=== PATIENT | female | born 1965 | race Caucasian/White ===

== ENCOUNTER 2016-10-14 19:58 | Emergency (ER) | payer MEDICAID ==
[~2016-10-14] VITALS: Ht 160 cm; Wt 72.6 kg
[2016-10-14] MEDS ORDERED: SULFAMETH/TRIMETH 800/160 MG TABLET PO ONE (20:15)
[2016-10-14] MEDS ORDERED: PHENAZOPYRIDINE HCL 100 MG TABLET PO ONE (20:15)
[2016-10-14 20:16] LABS: *BILIRUBIN,URIN NEGATIVE (NEGATIVE); *BLOOD, URINE 3+ (NEGATIVE); *CLARITY,URINE SLIGHTLY CLOUDY (CLEAR); *COLOR,URINE YELLOW (YELLOW); *KETONES,URINE NEGATIVE (NEGATIVE); *PROTEIN,URINE 1+ (NEGATIVE); *UROBILINOGEN,URINE 0.2 E.U./dl (NORMAL); LEUKOCYTE ESTERASE ,URINE 2+ (NEGATIVE); NITRITE, URINE POSITIVE (NEGATIVE); PH,URINE 5.5 (5.0-8.0); UGLUCOSE NEGATIVE (NEGATIVE)
[2016-10-14 20:24] LABS: BACTERIA,URINE FEW /HPF (NONE SEEN); SQUAMOUS EPITHELIAL CELL,UR FEW /HPF (NONE SEEN); WBC,URINE 20-50 /HPF (0-3)
[2016-10-14] MEDS ORDERED: SULFAMETH/TRIMETH 800/160 MG TABLET ONE (20:28)
[2016-10-14] MEDS ORDERED: PHENAZOPYRIDINE HCL 100 MG TABLET ONE (20:28)
--- NOTE | 2016-10-14 20:40 | NUR ---
Patient discharged to home in stable conditon. Written and verbal after care instructions given. Patient verbalizes understanding of instructions.
== END 2016-10-14 20:40 | disposition home or self-care (01) ==
LOC: ER 19:59
DX: N39.0 Urinary tract infection, site not specified (principal)
CPT/HCPCS: A4663

== ENCOUNTER 2017-04-24 08:14 | Emergency (ER) | payer MEDICAID ==
[~2017-04-24] VITALS: Ht 157.5 cm; Wt 73.0 kg
[2017-04-24] MEDS ORDERED: IBUP-23 PO (08:26)
--- NOTE | 2017-04-24 08:34 | NUR ---
PT CAME IN FROM HOME W/ C/O GI DISCOMFORT AND BACK PAIN X 2 WKS. ALSO COUGH X 3 DAYS. PT IS A&OX4. PT EVALUATED BY MD QUISPE. PT OFFERED MEDS, BUT REFUSED AT THIS TIME. WILL CONTINUE TO MONITOR. AWAITING MD ORDERS.
--- NOTE | 2017-04-24 08:39 | NUR ---
PASSENGER BOOKING CLERK AT BEDSIDE
[2017-04-24 09:03] LABS: BASOPHILS % (AUTO) 0.5 % (0.0-2.0); EOSINOPHILS # (AUTO) 0.1 K/uL (0.0-0.7); EOSINOPHILS % (AUTO) 1.5 % (0.0-7.0); HEMATOCRIT 40.5 % (31.2-41.9); LYMPHOCYTES # (AUTO) 1.9 K/uL (20.0-40.0); LYMPHOCYTES % (AUTO) 51.1 % (20.5-51.5); MEAN CORPUSCULAR HEMOGLOBIN 32.2 uug (24.7-32.8); MEAN CORPUSCULAR HGB CONC 35 g/dL (32.3-35.6); MONOCYTES # (AUTO) 0.6 K/uL (2.0-10.0); NEUTROPHILS # (AUTO) 1.1 K/uL (1.8-8.9); NEUTROPHILS % (AUTO) 29.9 % (38.5-71.5); PLATELET COUNT (AUTO) 281 K/uL (179-408); RED BLOOD CELL COUNT(AUTO) 4.35 MIL/uL (3.63-4.92); WHITE BLOOD COUNT (AUTO) 3.8 K/uL (3.8-11.8)
[2017-04-24 09:12] LABS: ALANINE AMINOTRANSFERASE 24 U/L (14-59); ALKALINE PHOSPHATASE 59 U/L (50-136); ASPARTATE AMINOTRANSFERASE 20 U/L (15-37); BILIRUBIN,DIRECT < 0.1 mg/dL (0.0-0.2); BILIRUBIN,TOTAL 0.2 mg/dL (0.2-1.0); CARBON DIOXIDE 32 mmol/L (21-32); CHLORIDE 102 mmol/L (98-107); CREATININE 0.8 mg/dL (0.6-1.3); GLUCOSE 100 mg/dL (74-106); LIPASE 148 U/L (73-393); POTASSIUM 3.5 mmol/L (3.5-5.1); TOTAL PROTEIN, SERUM 7.2 g/dL (6.4-8.2); UREA NITROGEN, BLOOD 11 mg/dL (7-18)
[2017-04-24] MEDS ORDERED: ONDANSETRON ODT 4 MG TAB.RAPDIS SL ONE (09:15)
[2017-04-24 09:25] LABS: BASOPHILS % (MANUAL) 2 % (0-2); EOSINOPHILS % (MANUAL) 1 % (0-8); LYMPHOCYTES % (MANUAL) 59 % (20-40); MONOCYTES % (MANUAL) 13 % (2-10); NEUTROPHILS % (MANUAL) 25 % (42-75)
[2017-04-24] MEDS ORDERED: ONDANSETRON ODT 4 MG TAB.RAPDIS ONE (09:32)
[2017-04-24 09:38] LABS: *BILIRUBIN,URIN NEGATIVE (NEGATIVE); *BLOOD, URINE 3+ (NEGATIVE); *COLOR,URINE YELLOW (YELLOW); *KETONES,URINE NEGATIVE (NEGATIVE); *UROBILINOGEN,URINE 0.2 E.U./dl (NORMAL); LEUKOCYTE ESTERASE ,URINE NEGATIVE (NEGATIVE); NITRITE, URINE NEGATIVE (NEGATIVE); PH,URINE 6.5 (5.0-8.0); UGLUCOSE NEGATIVE (NEGATIVE)
[2017-04-24 09:47] LABS: *CLARITY,URINE HAZY (CLEAR); *PROTEIN,URINE 2+ (NEGATIVE)
[2017-04-24 09:48] LABS: BACTERIA,URINE FEW /HPF (NONE SEEN); MUCUS,URINE FEW /LPF (0-FEW); RBC,URINE 50-80 /HPF (0-3); SQUAMOUS EPITHELIAL CELL,UR FEW /HPF (NONE SEEN)
--- NOTE | 2017-04-24 09:56 | NUR ---
Patient discharged to home in stable conditon. Written and verbal after care instructions given. Patient verbalizes understanding of instructions.
== END 2017-04-24 09:58 | disposition home or self-care (01) ==
LOC: ER 08:14
DX: N39.0 Urinary tract infection, site not specified (principal)
CPT/HCPCS: 36415; 71045; 83690; 85025; A4663; Q0162

== ENCOUNTER 2017-07-27 10:48 | Emergency (ER) | payer MEDICAID ==
[~2017-07-27] VITALS: Ht 157.5 cm; Wt 73.0 kg
[~2017-07-27 10:48] MED LIST: IBUP-23 PO
[2017-07-27 11:19] LABS: *BILIRUBIN,URIN NEGATIVE (NEGATIVE); *BLOOD, URINE 3+ (NEGATIVE); *CLARITY,URINE SLIGHTLY CLOUDY (CLEAR); *COLOR,URINE LIGHT YELLOW (YELLOW); *KETONES,URINE NEGATIVE (NEGATIVE); *PROTEIN,URINE 2+ (NEGATIVE); *UROBILINOGEN,URINE 0.2 E.U./dl (NORMAL); LEUKOCYTE ESTERASE ,URINE 3+ (NEGATIVE); NITRITE, URINE NEGATIVE (NEGATIVE); PH,URINE 6.5 (5.0-8.0); UGLUCOSE NEGATIVE (NEGATIVE)
[2017-07-27 11:24] LABS: *URINE HCG, QUAL NEGATIVE (NEGATIVE)
[2017-07-27 11:29] LABS: BACTERIA,URINE MODERATE /HPF (NONE SEEN); RBC,URINE TNTC /HPF (0-3); SQUAMOUS EPITHELIAL CELL,UR MANY /HPF (NONE SEEN); WBC,URINE TNTC /HPF (0-3)
[2017-07-27] MEDS ORDERED: CEFTRIAXONE 1 G in IV DEXTROSE 5% 50 ML IV ONE (12:34)
[2017-07-27] MEDS ORDERED: IV NS 1000 ML 1,000 ML IV ONE (12:45)
[2017-07-27] MEDS ORDERED: ACETAMINOPHEN 325 MG TABLET PO ONE (12:45)
[2017-07-27] MEDS ORDERED: CEFTRIAXONE 1 G VIAL ONE (12:48)
[2017-07-27] MEDS ORDERED: ACETAMINOPHEN ES 500 MG TABLET ONE (12:48)
[2017-07-27 12:57] LABS: BASOPHILS # (AUTO) 0.1 K/uL (0.0-8.0); BASOPHILS % (AUTO) 0.8 % (0.0-2.0); EOSINOPHILS # (AUTO) 0.2 K/uL (0.0-0.7); EOSINOPHILS % (AUTO) 1.1 % (0.0-7.0); HEMATOCRIT 37.7 % (31.2-41.9); HEMOGLOBIN 12.7 g/dL (10.9-14.3); LYMPHOCYTES # (AUTO) 2.6 K/uL (20.0-40.0); MEAN CORPUSCULAR HEMOGLOBIN 31.2 uug (24.7-32.8); MEAN CORPUSCULAR HGB CONC 34 g/dL (32.3-35.6); MEAN CORPUSCULAR VOLUME 92.7 fL (75.5-95.3); MONOCYTES # (AUTO) 0.8 K/uL (2.0-10.0); MONOCYTES % (AUTO) 5.8 % (0.0-11.0); NEUTROPHILS # (AUTO) 10.5 K/uL (1.8-8.9); NEUTROPHILS % (AUTO) 74.3 % (38.5-71.5); PLATELET COUNT (AUTO) 281 K/uL (179-408); RED BLOOD CELL COUNT(AUTO) 4.07 MIL/uL (3.63-4.92); WHITE BLOOD COUNT (AUTO) 14.1 K/uL (3.8-11.8)
[2017-07-27 12:59] LABS: CREATININE 0.6 mg/dL (0.6-1.3); POTASSIUM 4.2 mmol/L (3.5-5.1)
[2017-07-27 13:11] LABS: BILIRUBIN,TOTAL 0.4 mg/dL (0.2-1.0); TOTAL PROTEIN, SERUM 7.2 g/dL (6.4-8.2)
[2017-07-27 13:48] VITALS: BP 133/75
--- NOTE | 2017-07-27 13:50 | NUR ---
DR LUA SPOKE WITH PATIENT MADE AWARE OF TEST RESULT WILL BE DC HOME.
--- NOTE | 2017-07-27 13:52 | NUR ---
Patient discharged to home in stable conditon. Written and verbal after care instructions given. Patient verbalizes understanding of instructions.
--- NOTE | 2017-07-31 11:44 | NUR ---
Pt Urine Cx result came back positive, results were discusses with . Pt was contacted, pt still has pain and burning during urination. decided to change the antibiotic, discussed with the pt. antibiotics changed to Levaquin 750 Mg P.O Qd. [facility] was contacted [phone] prescription was ordered. pt is informed. pt was informed if she gets worse to return to emergency Dept.
== END 2017-07-27 13:53 | disposition home or self-care (01) ==
LOC: ER 10:48
DX: N12 Tubulo-interstitial nephritis, not specified as acute or chronic (principal); Z79.1 Long term (current) use of non-steroidal anti-inflammatories (NSAID)
CPT/HCPCS: 36415; 84703; 85025; 87077; 87086; A4663; A9150; J0696; J7030

== ENCOUNTER 2017-12-21 07:11 | Emergency (ER) | payer MEDICAID ==
[~2017-12-21] VITALS: Ht 157.5 cm; Wt 72.6 kg
--- NOTE | 2017-12-21 07:25 | NUR ---
Dr Rodriguez at the bedside for MSE.
[2017-12-21] MEDS ORDERED: ONDANSETRON 4 MG/2 ML VIAL IV ONE (07:30)
[2017-12-21] MEDS ORDERED: IV NORMAL SALINE 1000 ML BAG IV ONE (07:30)
[2017-12-21] MEDS ORDERED: MORPHINE SULFATE 4 MG/1 ML DISP.SYRIN IV ONE (07:30)
[2017-12-21] MEDS ORDERED: ONDANSETRON 4 MG/2 ML VIAL ONE (07:40)
[2017-12-21] MEDS ORDERED: MORPHINE SULFATE 4 MG/1 ML DISP.SYRIN ONE (07:40)
[2017-12-21 07:43] LABS: *BILIRUBIN,URIN NEGATIVE (NEGATIVE); *BLOOD, URINE 3+ (NEGATIVE); *CLARITY,URINE SLIGHTLY CLOUDY (CLEAR); *COLOR,URINE YELLOW (YELLOW); *KETONES,URINE NEGATIVE (NEGATIVE); *PROTEIN,URINE NEGATIVE (NEGATIVE); *UROBILINOGEN,URINE 0.2 E.U./dl (NORMAL); LEUKOCYTE ESTERASE ,URINE 3+ (NEGATIVE); NITRITE, URINE NEGATIVE (NEGATIVE); PH,URINE 6.5 (5.0-8.0); UGLUCOSE NEGATIVE (NEGATIVE)
[2017-12-21 07:45] LABS: BASOPHILS # (AUTO) 0.1 K/uL (0.0-8.0); BASOPHILS % (AUTO) 0.7 % (0.0-2.0); EOSINOPHILS # (AUTO) 0.3 K/uL (0.0-0.7); EOSINOPHILS % (AUTO) 2.4 % (0.0-7.0); HEMATOCRIT 38.8 % (31.2-41.9); HEMOGLOBIN 13.2 g/dL (10.9-14.3); LYMPHOCYTES # (AUTO) 2.5 K/uL (20.0-40.0); LYMPHOCYTES % (AUTO) 20.1 % (20.5-51.5); MEAN CORPUSCULAR HEMOGLOBIN 32.3 uug (24.7-32.8); MEAN CORPUSCULAR HGB CONC 34 g/dL (32.3-35.6); MEAN CORPUSCULAR VOLUME 94.9 fL (75.5-95.3); MONOCYTES # (AUTO) 0.9 K/uL (2.0-10.0); MONOCYTES % (AUTO) 6.8 % (0.0-11.0); NEUTROPHILS # (AUTO) 8.9 K/uL (1.8-8.9); PLATELET COUNT (AUTO) 335 K/uL (179-408); RED BLOOD CELL COUNT(AUTO) 4.09 MIL/uL (3.63-4.92); WHITE BLOOD COUNT (AUTO) 12.6 K/uL (3.8-11.8)
[2017-12-21 07:52] LABS: CREATININE 0.7 mg/dL (0.6-1.3); POTASSIUM 3.7 mmol/L (3.5-5.1)
[2017-12-21 07:56] LABS: BILIRUBIN,DIRECT 0.1 mg/dL (0.0-0.2); BILIRUBIN,TOTAL 0.4 mg/dL (0.2-1.0); TOTAL PROTEIN, SERUM 7.5 g/dL (6.4-8.2)
[2017-12-21 08:01] LABS: BACTERIA,URINE MODERATE /HPF (NONE SEEN); SQUAMOUS EPITHELIAL CELL,UR MODERATE /HPF (NONE SEEN); WBC,URINE TNTC /HPF (0-3)
[2017-12-21] MEDS ORDERED: KETOROLAC TROMETHAMINE 30 MG INJ IVP ONE (08:15)
[2017-12-21] MEDS ORDERED: CEFTRIAXONE 1 G in IV DEXTROSE 5% 50 ML IV ONE (08:15)
[2017-12-21] MEDS ORDERED: KETOROLAC TROMETHAMINE 30 MG INJ ONE (08:17)
[2017-12-21] MEDS ORDERED: CEFTRIAXONE 1 G VIAL ONE (08:17)
--- NOTE | 2017-12-21 08:36 | NUR ---
Patient is resting comfortably in bed with eyes closed, NAD noted.
[2017-12-21 09:40] VITALS: BP 115/65
--- NOTE | 2017-12-21 09:40 | NUR ---
IV removed. Catheter intact and site benign. Pressure and 4x4 gauze applied to site. No bleeding noted.
--- NOTE | 2017-12-21 09:41 | NUR ---
Patient discharged to home in stable conditon. Written and verbal after care instructions given. Patient verbalizes understanding of instructions.
== END 2017-12-21 09:48 | disposition home or self-care (01) ==
LOC: ER 07:11
DX: N12 Tubulo-interstitial nephritis, not specified as acute or chronic (principal); N83.202 Unspecified ovarian cyst, left side
CPT/HCPCS: 36415; 76775; 80048; 80076; 81001; 83690; 84703; 85025; 87086; 96361; 96365; 96375; 99285; A4663; J0696; J1885; J2270; J2405; J3490; J7030; 87077

== ENCOUNTER 2018-11-23 22:20 | Emergency (ER) | payer MEDICAID ==
[~2018-11-23] VITALS: Ht 157.5 cm; Wt 76.2 kg
[2018-11-23 22:44] LABS: *BILIRUBIN,URIN NEGATIVE (NEGATIVE); *BLOOD, URINE 2+ (NEGATIVE); *CLARITY,URINE CLEAR (CLEAR); *COLOR,URINE YELLOW (YELLOW); *KETONES,URINE NEGATIVE (NEGATIVE); *UROBILINOGEN,URINE 0.2 E.U./dl (NORMAL); LEUKOCYTE ESTERASE ,URINE NEGATIVE (NEGATIVE); NITRITE, URINE NEGATIVE (NEGATIVE); UGLUCOSE NEGATIVE (NEGATIVE)
[2018-11-23 22:52] LABS: BACTERIA,URINE FEW /HPF (NONE SEEN); SQUAMOUS EPITHELIAL CELL,UR FEW /HPF (NONE SEEN); WBC,URINE 0-3 /HPF (0-3)
--- NOTE | 2018-11-23 23:12 | NUR ---
ERMD at bedside for MSE
[2018-11-23] MEDS ORDERED: METOCLOPRAMIDE HCL 10 MG/2 ML VIAL IV ONE (23:15)
[2018-11-23] MEDS ORDERED: IV NORMAL SALINE 1000 ML BAG IV ONE (23:15)
[2018-11-23] MEDS ORDERED: KETOROLAC TROMETHAMINE 15 MG INJ IVP ONE (23:15)
[2018-11-23] MEDS ORDERED: KETOROLAC TROMETHAMINE 15 MG INJ ONE (23:35)
[2018-11-23] MEDS ORDERED: METOCLOPRAMIDE HCL 10 MG/2 ML VIAL ONE (23:35)
[2018-11-23 23:38] LABS: BASOPHILS # (AUTO) 0.1 K/uL (0.0-8.0); EOSINOPHILS # (AUTO) 0.4 K/uL (0.0-0.7); EOSINOPHILS % (AUTO) 4.8 % (0.0-7.0); HEMATOCRIT 34.4 % (31.2-41.9); HEMOGLOBIN 11.8 g/dL (10.9-14.3); LYMPHOCYTES # (AUTO) 2.9 K/uL (20.0-40.0); LYMPHOCYTES % (AUTO) 37.8 % (20.5-51.5); MEAN CORPUSCULAR HEMOGLOBIN 31.6 uug (24.7-32.8); MEAN CORPUSCULAR HGB CONC 34 g/dL (32.3-35.6); MEAN CORPUSCULAR VOLUME 92.2 fL (75.5-95.3); MONOCYTES # (AUTO) 0.6 K/uL (2.0-10.0); MONOCYTES % (AUTO) 8.3 % (0.0-11.0); NEUTROPHILS # (AUTO) 3.7 K/uL (1.8-8.9); NEUTROPHILS % (AUTO) 48.1 % (38.5-71.5); PLATELET COUNT (AUTO) 267 K/uL (179-408); RED BLOOD CELL COUNT(AUTO) 3.74 MIL/uL (3.63-4.92); WHITE BLOOD COUNT (AUTO) 7.6 K/uL (3.8-11.8)
[2018-11-23 23:42] LABS: CREATININE 0.6 mg/dL (0.6-1.3)
[2018-11-23 23:47] LABS: BILIRUBIN,DIRECT 0.1 mg/dL (0.0-0.2); BILIRUBIN,TOTAL 0.2 mg/dL (0.2-1.0); TOTAL PROTEIN, SERUM 7.1 g/dL (6.4-8.2)
[2018-11-24] MEDS ORDERED: AZITHROMYCIN 250 MG TABLET PO ONE (00:30)
[2018-11-24] MEDS ORDERED: AZITHROMYCIN 250 MG TABLET ONE (00:42)
--- NOTE | 2018-11-24 01:11 | NUR ---
IV removed. Catheter intact and site benign. Pressure and 4x4 gauze applied to site. No bleeding noted.
[2018-11-24 01:14] VITALS: BP 113/64
--- NOTE | 2018-11-24 01:14 | NUR ---
Patient discharged to home in stable conditon. Written and verbal after care instructions given. Patient verbalizes understanding of instructions. Pt walked out of ER in stable gait. Pt states she feels so much better. No acute distress noted. Vital signs stable. Respirations even + unlabored.
== END 2018-11-24 01:15 | disposition home or self-care (01) ==
LOC: ER 22:22
DX: J18.0 Bronchopneumonia, unspecified organism (principal); R19.7 Diarrhea, unspecified; Z79.1 Long term (current) use of non-steroidal anti-inflammatories (NSAID)
CPT/HCPCS: 36415; 71045; 80048; 80076; 81000; 81001; 83605; 84484; 84702; 85025; 87040 ×2; 96361; 96374; 96375; 99284; J1885; J2765; 70030-TC; A4663; J7030; J7040; Q0144

== ENCOUNTER 2019-04-21 07:03 | Emergency (ER) | payer MEDICAID ==
[~2019-04-21] VITALS: Ht 157.5 cm; Wt 76.2 kg
[2019-04-21] MEDS ORDERED: IBUPROFEN 600 MG TABLET ONE (07:30)
[2019-04-21] MEDS ORDERED: IBUPROFEN 600 MG TABLET PO ONE (07:30)
[2019-04-21 07:46] LABS: *BILIRUBIN,URIN NEGATIVE (NEGATIVE); *BLOOD, URINE 2+ (NEGATIVE); *CLARITY,URINE CLEAR (CLEAR); *COLOR,URINE YELLOW (YELLOW); *KETONES,URINE NEGATIVE (NEGATIVE); *UROBILINOGEN,URINE 0.2 E.U./dl (NORMAL); LEUKOCYTE ESTERASE ,URINE NEGATIVE (NEGATIVE); NITRITE, URINE NEGATIVE (NEGATIVE); UGLUCOSE NEGATIVE (NEGATIVE)
[2019-04-21 07:48] LABS: *URINE HCG, QUAL NEGATIVE (NEGATIVE)
[2019-04-21 07:54] LABS: BACTERIA,URINE FEW /HPF (NONE SEEN); RBC,URINE 0-3 /HPF (0-3); SQUAMOUS EPITHELIAL CELL,UR FEW /HPF (NONE SEEN); WBC,URINE 0-3 /HPF (0-3)
== END 2019-04-21 08:17 | disposition home or self-care (01) ==
LOC: ER 07:06
DX: N39.0 Urinary tract infection, site not specified (principal); J06.9 Acute upper respiratory infection, unspecified; K21.9 Gastro-esophageal reflux disease without esophagitis; Z79.1 Long term (current) use of non-steroidal anti-inflammatories (NSAID)
CPT/HCPCS: 71045; 84703; 87400; A4663

== ENCOUNTER 2020-07-09 07:51 | Inpatient (IN) | payer MEDICAID ==
[~2020-07-09] VITALS: Ht 162.6 cm; Wt 74.8 kg
[2020-07-09 08:24] LABS: BASOPHILS # (AUTO) 0.1 K/uL (0.0-8.0); BASOPHILS % (AUTO) 0.9 % (0.0-2.0); EOSINOPHILS # (AUTO) 0.3 K/uL (0.0-0.7); EOSINOPHILS % (AUTO) 4.1 % (0.0-7.0); HEMATOCRIT 37.5 % (31.2-41.9); HEMOGLOBIN 12.6 g/dL (10.9-14.3); LYMPHOCYTES # (AUTO) 3.5 K/uL (20.0-40.0); LYMPHOCYTES % (AUTO) 45.7 % (20.5-51.5); MEAN CORPUSCULAR HGB CONC 34 g/dL (32.3-35.6); MEAN CORPUSCULAR VOLUME 92.2 fL (75.5-95.3); MONOCYTES # (AUTO) 0.5 K/uL (2.0-10.0); MONOCYTES % (AUTO) 7.1 % (0.0-11.0); NEUTROPHILS # (AUTO) 3.2 K/uL (1.8-8.9); NEUTROPHILS % (AUTO) 42.2 % (38.5-71.5); PLATELET COUNT (AUTO) 297 K/uL (179-408); RED BLOOD CELL COUNT(AUTO) 4.07 MIL/uL (3.63-4.92); WHITE BLOOD COUNT (AUTO) 7.6 K/uL (3.8-11.8)
[2020-07-09 08:33] LABS: CREATININE 0.7 mg/dL (0.6-1.3); POTASSIUM 3.8 mmol/L (3.5-5.1)
[2020-07-09 08:45] LABS: BILIRUBIN,DIRECT 0.1 mg/dL (0.0-0.2); BILIRUBIN,TOTAL 0.3 mg/dL (0.2-1.0); TOTAL PROTEIN, SERUM 7.3 g/dL (6.4-8.2)
[2020-07-09] MEDS ORDERED: ASPIRIN 81 MG TAB.CHEW PO ONE (09:00)
--- NOTE | 2020-07-09 09:00 | NUR ---
Pt sitting at bedside and eating breakfast with NAD noted. Per Dr. Rodriguez pt to be admitted to tele. Tele floor called for bed assignment, ER admitting notified.
[2020-07-09] MEDS ORDERED: ASPIRIN 81 MG TAB.CHEW ONE (09:03)
[2020-07-09 10:00] LABS: *BILIRUBIN,URIN NEGATIVE (NEGATIVE); *BLOOD, URINE 2+ (NEGATIVE); *CLARITY,URINE SLIGHTLY CLOUDY (CLEAR); *COLOR,URINE YELLOW (YELLOW); *KETONES,URINE NEGATIVE (NEGATIVE); *UROBILINOGEN,URINE 0.2 E.U./dl (NORMAL); LEUKOCYTE ESTERASE ,URINE NEGATIVE (NEGATIVE); NITRITE, URINE NEGATIVE (NEGATIVE); UGLUCOSE NEGATIVE (NEGATIVE)
--- NOTE | 2020-07-09 10:00 | NUR ---
Pt resting with NAD noted. Pend auth for admission from pt's HMO (per ER admitting) and tele admission.
[2020-07-09 10:15] LABS: WBC,URINE NONE SEEN /HPF (0-3)
[2020-07-09 10:16] LABS: RBC,URINE 0-3 /HPF (0-3); SQUAMOUS EPITHELIAL CELL,UR FEW /HPF (NONE SEEN)
--- NOTE | 2020-07-09 10:25 | NUR ---
Per ER admitting pt may be admitted here, EPIC paged.
--- NOTE | 2020-07-09 10:50 | NUR ---
SBAR report given to Bianka on tele floor via telephone.
[2020-07-09] MEDS ORDERED: MAGNESIUM HYDROXIDE 30 ML LIQUID UDC PO PRN (11:00)
[2020-07-09] MEDS ORDERED: ACETAMINOPHEN 325 MG TABLET PO PRN (11:00)
[2020-07-09] MEDS ORDERED: HYDROCODONE/APAP 5-325MG TABLET PO PRN (11:00)
[2020-07-09] MEDS ORDERED: Z GUARD REMEDY PASTE 57 GM TUBE TOP PRN (11:00)
[2020-07-09] MEDS ORDERED: ONDANSETRON 4 MG/2 ML VIAL IV PRN (11:00)
--- NOTE | 2020-07-09 11:00 | NUR ---
Pt trans to tele floor, NAD noted.
--- NOTE | 2020-07-09 11:30 | NUR ---
1130- Received patient from ED report given by Missy. Patient is alert, oriented x4. On room air spo2 99%. Breathing non labored. Denies shortness of breath. Skin assessment done. Skin is intact, no open wound or bruising noted. RAC 20g noted intact and patent. Patient said she still feels nauseous and some dizziness. Encouraged to ask for assistance and call light placed within reach. Per patient she doesn't feel chest pressure when she's at work only at night. Patient's VS taken and noted 129/50, 63, 18, 99.7, 99%. Belongings are inventoried and confirmed by patient. Kept comfortable. Will continue to monitor.
[2020-07-09 11:41] VITALS: BP 129/50
--- NOTE | 2020-07-09 13:33 | NUR ---
Seen and examined by Dr. Cotter with order for head ct without contrast today and cardiac cta tomorrow at [facility]. Informed CASSIE Wells and faxed her the order. She said she will coordinate with Jason. Patient is made aware.
--- NOTE | 2020-07-09 14:30 | NUR ---
Rigo Wells cta appt is 9002 tomorrow. Patient informed, said Dr. Yeager talked to her also, agreed.
[2020-07-09 15:27] VITALS: BP 113/47
[2020-07-09] MEDS: IBUPROFEN 400 MG TABLET PO PRN (18:51)
--- NOTE | 2020-07-09 18:56 | NUR ---
PATIENT IN BED AWAKE AND WATCHING TV. NO RESPIRATORY DISTRESS. DENIES CHEST PAIN OR SOB. GIVEN PAIN MEDICATION FOR HEADACHE. PATIENT REMINDED OF CARDIAC CTA APPT TOMORROW MORNING. NOTED WITH [facility] TODAY. NEEDS ATTENDED. KEPT COMFORTABLE. BED LOW AND LOCKED. CALL LIGHT WITHIN REACH. WILL CONTINUE TO MONITOR.
--- NOTE | 2020-07-09 19:45 | NUR ---
PATIENT ALERT ORIENTED, SPEAK [place] BUT UNDERSTAND [place]. PATIENT HAS NO COMPLAIN OF PAIN, TELE MONITOR SINUS RHYTHM, CONT TO MONITOR.
[2020-07-09 20:31] VITALS: BP 106/63
[2020-07-10 00:29] VITALS: BP 116/44
[2020-07-10 04:28] VITALS: BP 109/55
--- NOTE | 2020-07-10 06:01 | NUR ---
PATIENT ALERT ORIENTED, NO SOB NO CHEST PAIN, PATIENT TELE MONITOR SINUS RHYTHM SINUS ANURAG. PATIENT HAS NO COMPLAIN OF PAIN, CONT TO MONITOR.
[2020-07-10 06:32] LABS: BASOPHILS % (AUTO) 0.7 % (0.0-2.0); EOSINOPHILS # (AUTO) 0.3 K/uL (0.0-0.7); EOSINOPHILS % (AUTO) 3.7 % (0.0-7.0); HEMATOCRIT 37.5 % (31.2-41.9); HEMOGLOBIN 12.5 g/dL (10.9-14.3); LYMPHOCYTES # (AUTO) 3.2 K/uL (20.0-40.0); LYMPHOCYTES % (AUTO) 45.7 % (20.5-51.5); MEAN CORPUSCULAR HEMOGLOBIN 30.7 uug (24.7-32.8); MEAN CORPUSCULAR HGB CONC 33 g/dL (32.3-35.6); MEAN CORPUSCULAR VOLUME 92.1 fL (75.5-95.3); MONOCYTES # (AUTO) 0.5 K/uL (2.0-10.0); MONOCYTES % (AUTO) 6.9 % (0.0-11.0); PLATELET COUNT (AUTO) 299 K/uL (179-408); RED BLOOD CELL COUNT(AUTO) 4.07 MIL/uL (3.63-4.92); WHITE BLOOD COUNT (AUTO) 6.9 K/uL (3.8-11.8)
[2020-07-10 06:44] LABS: CREATININE 0.7 mg/dL (0.6-1.3); POTASSIUM 3.8 mmol/L (3.5-5.1)
--- NOTE | 2020-07-10 07:49 | NUR ---
Patient is awake and oriented x4. No respiratory distress noted. Denies chest pain or sob. IV site on LFA intact and patent. Bed is low and locked. Safety measures maintained. Kept comfortable. Call light within reach. Will continue to monitor.
[2020-07-10] MEDS: IBUPROFEN 400 MG TABLET PO PRN ×2 (08:06→16:32)
--- NOTE | 2020-07-10 08:48 | NUR ---
Picked up by 2 resource economist from [facility] ambulance for scheduled CTA at [facility]. Patient alert and oriented. IV is intact. Skin is intact. No acute distress.
--- NOTE | 2020-07-10 10:19 | NUR ---
Came back from [facility] for scheduled CTA. Alert and oriented x4. Denies pain. No respiratory distress noted. Patient c/o rac iv inserted at [facility] hurts so removed it. LAc iv intact and patent. In no acute distress. Will continue to monitor.
[2020-07-10 11:07] VITALS: BP 113/50
[2020-07-10 13:56] LABS: THYROID STIMULATING HORMONE 1.891 mIU/mL (0.358-3.740)
[2020-07-10] MEDS ORDERED: ATOR20TA PO (14:58)
[2020-07-10] MEDS ORDERED: MECL-225 PO (14:58)
[2020-07-10 15:14] VITALS: BP 113/71
--- NOTE | 2020-07-10 15:58 | NUR ---
Patient for discharge but said she feels dizzy and has blurry vision. Informed Dr. Menezes with order to have pt stay, continue on tele and order for bilateral carotid doppler, noted and carried out. Patient is made aware.
--- NOTE | 2020-07-10 16:15 | NUR ---
Patient said she still feels dizzy and that her blurry vision started about a week ago. No facial weakness or slurred speech noted. Able to raise both arms and legs evenly. Patient asked when she can go home. Informed her of MD order and that we'll go from there. VS taken: 112/56, 51, 96% on RA. 98.1, 18. Will continue to monitor.
[2020-07-10] MEDS ORDERED: MECLIZINE HCL 12.5 MG TABLET PO PRN (17:30)
--- NOTE | 2020-07-10 18:27 | NUR ---
Received call from Rajeev that he had already left the building, asked if ok to do doppler scan tomorrow. Informed Dr. Menezes he said it's ok tomorrow 9am. Rajeev aware and confirmed for tomorrow. Patient made aware.
--- NOTE | 2020-07-10 19:25 | NUR ---
Patient alert and oriented. Patient wants to go home tomorrow after her doppler. Denies chest pain or sob. Safety measures maintained. Kept comfortable.
[2020-07-10 20:03] VITALS: BP 102/48
[2020-07-11] VITALS: BP 104/45
[2020-07-11 04:00] VITALS: BP 124/64
--- NOTE | 2020-07-11 06:32 | NUR ---
Pt slept throughout the night. Denies SOB or chest pain. Denies dizziness at this time. Bed is locked and in lowest position, call light within reach. No other issues or concerns at this time. Will endorse to day shift.
[2020-07-11] MEDS ORDERED: FAMOTIDINE 20 MG TABLET PO SCH (09:00)
--- NOTE | 2020-07-11 09:46 | NUR ---
Patient refuses medication for dizziness meclizine. Marty Dowell RN
[2020-07-11 11:14] VITALS: BP 105/42
--- NOTE | 2020-07-11 17:30 | NUR ---
Late entry. Discharge to home with all belongings. Patient verbalizes understanding to follow up with primary MD and get referral to Cardiology. Gave information to get prescriptions from [facility]. All questions answered for patient and she verbalizes understanding of teaching and follow up. A copy of these instructions was provided. Marty Dowell RN
== END 2020-07-11 16:30 | disposition home or self-care (01) | DRG 111 ==
LOC: ER 07:51 → TELE3 10:56
PROVIDERS: ADMIT Internal Medicine; ATTEND Internal Medicine
DX: H83.09 Labyrinthitis, unspecified ear (principal); I42.2 Other hypertrophic cardiomyopathy; E66.9 Obesity, unspecified; R55 Syncope and collapse; E78.5 Hyperlipidemia, unspecified; Z68.28 Body mass index [BMI] 28.0-28.9, adult; R00.1 Bradycardia, unspecified; R94.31 Abnormal electrocardiogram [ECG] [EKG]; K21.9 Gastro-esophageal reflux disease without esophagitis; R93.1 Abnormal findings on diagnostic imaging of heart and coronary circulation; R07.9 Chest pain, unspecified; Z20.822 Contact with and (suspected) exposure to COVID-19
CPT/HCPCS: 36415; 70030-TC; 70450; 71045; 83735; 84100; 84443; 85025; 93005; 93307; 93880; A4663; G0378; J7030